=== PATIENT | male | born 1960 | race Caucasian/White ===

== ENCOUNTER 2017-04-26 08:11 | Day surgery (SDC) | payer OTHER ==
[2017-04-25 14:38] VITALS: BMI 23.4
[2017-04-26] MEDS ORDERED: PROPOFOL 20 ML ONE ×5 (08:34)
[2017-04-26] MEDS ORDERED: LIDOCAINE HCL/PF 2% SDV 5ML VIAL ONE (08:34)
[2017-04-26 10:00] VITALS: TEMP 97.7
[2017-04-26 12:57] VITALS: BP 121/63; PULSE 52
== END 2017-04-26 10:50 | disposition home or self-care (01) ==
LOC: JASU-ENDO 08:11
PROVIDERS: ATTEND Internal Medicine Gastroenterology
PROC: 0DJD8ZZ Inspection of Lower Intestinal Tract, Via Natural or Artificial Opening Endoscopic (ICD-10-PCS; principal; 2017-04-26 09:00)
DX: Z12.11 Encounter for screening for malignant neoplasm of colon (principal); Z86.010 Personal history of colon polyps; K57.30 Diverticulosis of large intestine without perforation or abscess without bleeding; K64.8 Other hemorrhoids

== ENCOUNTER 2018-12-18 12:30 | Emergency (ER) | payer OTHER ==
[2018-12-18 12:37] VITALS: BMI 23.5
[2018-12-18] MEDS ORDERED: SODIUM CHLORIDE 1,000 ML IV STA (13:20)
--- NOTE | 2018-12-18 13:40 | PDOC ---
Documentation entered by Faina Alvarez SCRIBE, acting as scribe for Joselito Simmons MD. Joselito Simmons MD: This documentation has been prepared by the Antonio jane Amanda, SCRIBE, under my direction and personally reviewed by me in its entirety. I confirm that the documentation accurately reflects all work, treatment, procedures, and medical decision making performed by me. History of Present Illness - General Chief Complaint: Lightheaded Stated Complaint: FALL W/DIZZINESS Time Seen by Provider: 12/18/18 12:53 History Source: Patient Exam Limitations: No Limitations - History of Present Illness Initial Comments: 12/18/18 13:14 The patient is a 58 year old male with a significant past medical history of BPH , HLD, HTN, MVP with regurg, who presents to the ED for evaluation after a syncopal episode. He states he has been feeling ill for about 3 days. He was recently treated for a sinus infection with a Z-pack, but over the past few days has been feeling feverish with bodyaches. He states he took Tylenol before bed last night with little to no relief. He states he was in the bathroom and when he heard the phone ring, he stood up and felt very lightheaded. Pt subsequently lost consciousness and fell forward. He reports hitting his forehead on the edge of the bathtub. Pt states that after he woke up, he felt very nauseous and vomited once. He currently complains of mild nausea, but his lightheadedness has resolved. He denies ever having chest pain, SOB, palpitations. He denies abdominal pain, diarrhea or constipation. Past History - Past Medical History Allergies/Adverse Reactions: Allergies Allergy/AdvReac Type Severity Reaction Status Date / Time UNKNOWN MATERIAL AdvReac Uncoded 12/18/18 12:33 Home Medications: Ambulatory Orders Finasteride [Proscar -] 5 mg PO DAILY 10/01/12 Lisinopril 5 mg PO DAILY 09/21/15 Atorvastatin Ca [Lipitor] 20 mg PO HS 12/18/18 Anemia: No Asthma: No Cancer: No Cardiac Disorders: Yes (MVP, MILD REGURGITATION) CVA: No COPD: No CHF: No Dementia: No Diabetes: No GI Disorders: Yes (GASTRIC ANTRUM ULCERS,H.PYLORI GASTRITIS,COLONIC POLYPS - SERRATED ADENOMA) Disorders: Yes (BPH) HTN: No Hypercholesterolemia: Yes (NO MEDS NEEDED) Liver Disease: No Seizures: No Thyroid Disease: No - Surgical History Abdominal Surgery: Yes (RIH,LIH,UMBILICAL LAPAROSCOPIC REPAIR) Appendectomy: No Cardiac Surgery: No Cholecystectomy: No Lung Surgery: No Neurologic Surgery: No Orthopedic Surgery: No - Immunization History Immunization Up to Date: Yes - Suicide/Smoking/Psychosocial Hx Smoking History: Never smoked Have you smoked in the past 12 months: No If you are a former smoker, when did you quit?: 20 years ago Hx Alcohol Use: No Drug/Substance Use Hx: No Substance Use Type: None Hx Substance Use Treatment: No Review of Systems - Review of Systems Able to Perform ROS?: Yes Comments:: 12/18/18 13:22 GENERAL/CONSTITUTIONAL: (+) generalized weakness. No fever or chills. HEAD, EYES, EARS, NOSE AND THROAT: No change in vision. No ear pain or discharge. No sore throat. CARDIOVASCULAR: (+) syncope, No chest pain, no shortness of breath, no loss of consciousness RESPIRATORY: No cough, wheezing, or hemoptysis. GASTROINTESTINAL: No nausea, vomiting, diarrhea or constipation. GENITOURINARY: No dysuria, frequency, or change in urination. MUSCULOSKELETAL: No joint or muscle swelling or pain. No neck or back pain. SKIN: No rash NEUROLOGIC: No vertigo. no change in strength/sensation. ENDOCRINE: No increased thirst. No abnormal weight change. HEMATOLOGIC/LYMPHATIC: No anemia, easy bleeding, or history of blood clots. ALLERGIC/IMMUNOLOGIC: No hives or skin allergy. *Physical Exam - Vital Signs Last Vital Signs Temp Pulse Resp BP Pulse Ox 98.7 F 80 18 127/80 97 12/18/18 12:34 12/18/18 12:34 12/18/18 12:34 12/18/18 12:34 12/18/18 12:34 - Physical Exam Comments: 12/18/18 13:23 GENERAL: Awake, alert, and fully oriented, in no acute distress. HEAD: No signs of trauma EYES: PERRLA, EOMI, sclera anicteric, conjunctiva clear ENT: Auricles normal inspection, hearing grossly normal, nares patent, oropharynx clear without exudates. Moist mucosa NECK: Nontender, no stepoffs, Normal ROM, supple, no lymphadenopathy, JVD, or masses LUNGS: Breath sounds equal, clear to auscultation bilaterally. No wheezes, and no crackles HEART: Regular rate and rhythm, normal S1 and S2, no murmurs, rubs or gallops ABDOMEN: Soft, nontender, normoactive bowel sounds. No guarding, no rebound. No masses EXTREMITIES: Normal range of motion, no edema. No clubbing or cyanosis. No cords, erythema, or tenderness NEUROLOGICAL: Cranial nerves II through XII intact. 5/5 strength and sensation in all extremities, Normal speech, normal gait, normal cerebellar function SKIN: Warm, Dry, normal turgor, no rashes or lesions noted. Heart Score/ECG Review - ECG Impressions Comment:: 12/18/18 15:49 NSR, no BRANDY/STDs, no TWIs, axis wnl, intervals wnl, rate 80 ED Treatment Course - LABORATORY CBC & Chemistry Diagram: 12/18/18 13:50 12/18/18 13:50 - RADIOLOGY Radiology Studies Ordered: Category Date Time Status CERVICAL SPINE CT W/O CONTR [CT] Stat CT Scan 12/18/18 13:[address] WITHOUT CONTRAST [CT] Stat CT Scan 12/18/18 13:20 Ordered CHEST PA & LAT [RAD] Stat Radiology 12/18/18 13:19 Ordered Medical Decision Making - Medical Decision Making 12/18/18 13:38 58 M with syncopal episode today. Likely orthostatic, as pt had just risen from sitting position. Pt with normal vitals in ED. Will r/o arrhythmia with EKG. Pt with recent subjective fevers so will also evaluate for infectious process. No evidence of head trauma on exam, but given vomiting after headstrike, will obtain CT head. - Labs - CXR, UA - CT head - IVF 12/18/18 15:49 EKG wnl Labs wnl CXR clear 12/18/18 16:37 Pt reassessed - now feels much better Pt is well appearing, with normal vitals. Clinically stable for DC at this time. I discussed the physical exam findings, ancillary test results and final diagnoses with the patient. I answered all of the patient's questions. The patient was satisfied with the care received and felt comfortable with the discharge plan and treatment plan. The patient agrees to follow up with the primary care physician within 24-72 hours. *DC/Admit/Observation/Transfer Diagnosis at time of Disposition: Syncope - Discharge Dispostion Disposition: HOME - Referrals Referrals: Kevin Naranjo MD [Primary Care Provider] - - Patient Instructions Printed Discharge Instructions: DI for Syncope in Adults (Fainting) Additional Instructions: Drink plenty of fluids to stay hydrated. If you experience any chest pain, shortness of breath, palpitations, or any other concerning symptoms, return to the ER immediately. Otherwise, follow up with your primary doctor within 1 week. - Post Discharge Activity - Attestations Physician Attestion: 12/18/18 16:38 I, Dr. Joselito Simmons MD, attest that this document has been prepared under my direction and personally reviewed by me in its entirety. I further attest, that it accurately reflects all work, treatment, procedures and medical decision -making performed by me.
[2018-12-18 14:03] LABS: BASO % 0.9 % (0-2.0); HEMATOCRIT 44.5 % (35.4-49); HEMOGLOBIN 15.2 GM/dL (11.7-16.9); LYMPH % 14.6 % (8-40); MCH 30.7 pg (25.7-33.7); MCHC 34.1 g/dl (32.0-35.9); MEAN CELL VOLUME 89.8 fl (80-96); MEAN PLT VOLUME 8.7 fl (7.5-11.1); MONO % 14.5 % (3.8-10.2); PLATELET COUNT 207 K/MM3 (134-434); RBC 4.95 M/mm3 (4.00-5.60); RDW 13.1 % (11.9-15.9); WHITE BLOOD COUNT 5.6 K/mm3 (4.0-10.0)
[2018-12-18 14:27] LABS: ALK PHOS 86 U/L (45-117); ANION GAP 5 MMOL/L (8-16); BILIRUBIN,TOTAL 0.6 mg/dL (0.2-1); BLOOD UREA NITROGEN 10 mg/dL (7-18); CHLORIDE 99 mmol/L (98-107); CO2 31 mmol/L (21-32); CREATININE 0.9 mg/dL (0.55-1.3); GLUCOSE,RANDOM 105 mg/dL (74-106); SGOT/AST 20 U/L (15-37); SGPT/ALT 28 U/L (13-61); SODIUM 135 mmol/L (136-145); TOT PROT 7.2 g/dl (6.4-8.2)
[2018-12-18] MEDS ORDERED: ONDANSETRON 4 MG/2 ML VIAL IVPB ONE (15:28)
[2018-12-18] MEDS ORDERED: ACETAMINOPHEN 1000 MG/100 ML VIAL (NON FORMULARY) IVPB ONE (15:28)
[2018-12-18 17:01] LABS: EPI CELLS 0 /HPF (0-5/HPF); PH,URINE 5.5 (5.0-8.0); URINE APPEARANCE CLEAR; URINE BACTERIA 3.7 /hpf (NEGATIVE); URINE BILIRUBIN NEGATIVE (NEGATIVE); URINE CASTS 0 /lpf (0-8); URINE COLOR YELLOW; URINE GLUCOSE (UA) NEGATIVE (NEGATIVE); URINE KETONE TRACE (NEGATIVE); URINE LEUK ESTERASE NEGATIVE (NEGATIVE); URINE NITRITE NEGATIVE (NEGATIVE); URINE PROTEIN NEGATIVE (NEGATIVE); URINE RBC 0 /hpf (0-4); URINE UROBILINOGEN 0.2 mg/dL (0.2-1.0); URINE WBC 0 /hpf (0-5)
[2018-12-18 18:12] VITALS: BP 109/65; PULSE 71; TEMP 98.6
--- NOTE | 2018-12-19 11:27 | EKG ---
Test Reason : Blood Pressure : / mmHG Vent. Rate : 080 BPM Atrial Rate : 080 BPM P-R Int : 168 ms QRS Dur : 092 ms QT Int : 366 ms P-R-T Axes : 047 001 038 degrees QTc Int : 422 ms NORMAL SINUS RHYTHM POSSIBLE LEFT ATRIAL ENLARGEMENT NO PREVIOUS ECGS AVAILABLE Confirmed by TITUS WINTERS MD ([id number]) on 12/19/2018 11:26:55 AM Referred By: Confirmed By:TITUS WINTERS MD
== END 2018-12-18 18:25 | disposition home or self-care (01) ==
LOC: JER 12:30
PROC: 3E0337Z Introduction of Electrolytic and Water Balance Substance into Peripheral Vein, Percutaneous Approach (ICD-10-PCS; principal; 2018-12-18)
PROC: 3E033GC Introduction of Other Therapeutic Substance into Peripheral Vein, Percutaneous Approach (ICD-10-PCS; 2018-12-18)
DX: R55 Syncope and collapse (principal); S09.8XXA Other specified injuries of head, initial encounter; W01.198A Fall on same level from slipping, tripping and stumbling with subsequent striking against other object, initial encounter; Y93.89 Activity, other specified; Y92.031 Bathroom in apartment as the place of occurrence of the external cause; Y99.8 Other external cause status; I10 Essential (primary) hypertension; E78.5 Hyperlipidemia, unspecified; E78.00 Pure hypercholesterolemia, unspecified; N40.0 Benign prostatic hyperplasia without lower urinary tract symptoms; I34.1 Nonrheumatic mitral (valve) prolapse; Z87.19 Personal history of other diseases of the digestive system
CPT/HCPCS: 36415; 70450-TC; 71046-TC-FY; 72125-TC; 80053; 81003; 82550; 84484; 85025; 93005; 93010; 99283-25; J0131; J7030

== ENCOUNTER 2022-08-24 04:24 | Day surgery (SDC) | payer OTHER ==
[2022-08-23 12:29] VITALS: BMI 22.5
[2022-08-24 12:08] VITALS: BP 128/72; PULSE 70; RESP 15
[2022-08-24 13:31] VITALS: TEMP 98.6
== END 2022-08-24 10:45 | disposition home or self-care (01) ==
LOC: JASU-ENDO 04:24
PROVIDERS: ATTEND Internal Medicine Gastroenterology
PROC: 0DJD8ZZ Inspection of Lower Intestinal Tract, Via Natural or Artificial Opening Endoscopic (ICD-10-PCS; principal; 2022-08-24 09:00)
DX: Z12.11 Encounter for screening for malignant neoplasm of colon (principal); K57.30 Diverticulosis of large intestine without perforation or abscess without bleeding; K64.8 Other hemorrhoids; Z86.010 Personal history of colon polyps

== ENCOUNTER 2023-06-03 11:27 | Emergency (ER) | payer OTHER ==
[2023-06-03 11:32] VITALS: BP 151/84; PULSE 80; RESP 18; TEMP 98; BMI 23.1
== END 2023-06-03 12:23 | disposition home or self-care (01) ==
LOC: JER 11:27
DX: R53.1 Weakness (principal); R20.0 Anesthesia of skin; G56.32 Lesion of radial nerve, left upper limb
CPT/HCPCS: 99281-25

== ENCOUNTER 2025-02-20 19:05 | Emergency (ER) | payer OTHER ==
[2025-02-20 19:17] VITALS: BP 120/68; PULSE 64; RESP 18; TEMP 98.1; BMI 23.7
[2025-02-20] MEDS ORDERED: ACETAMINOPHEN 325 MG TABLET (FP) ONE (20:01)
[2025-02-20] MEDS ORDERED: DIPHTH,PERTUSS(ACELL),TET 0.5 ML DISP.SYRIN IM ONE (20:01)
[2025-02-20] MEDS: ACETAMINOPHEN 325 MG TABLET (FP) PO ONE (20:05)
[2025-02-20] MEDS: DIPHTH,PERTUSS(ACELL),TET 0.5 ML DISP.SYRIN IM ONE (20:05)
[2025-02-20] MEDS ORDERED: LIDOCAINE 1%/EPI 1:100000 (20 ML MULTI DOSE VIAL) ONE (21:01)
== END 2025-02-20 23:10 | disposition home or self-care (01) ==
LOC: JER 19:05
PROC: 0HQ1XZZ Repair Face Skin, External Approach (ICD-10-PCS; principal; 2025-02-20)
PROC: 3E0234Z Introduction of Serum, Toxoid and Vaccine into Muscle, Percutaneous Approach (ICD-10-PCS; 2025-02-20)
DX: S01.81XA Laceration without foreign body of other part of head, initial encounter (principal); S60.512A Abrasion of left hand, initial encounter; S00.31XA Abrasion of nose, initial encounter; Z23 Encounter for immunization; W10.8XXA Fall (on) (from) other stairs and steps, initial encounter; Y92.522 Railway station as the place of occurrence of the external cause
CPT/HCPCS: 70450-TC; 90715; 99285-25

== ENCOUNTER 2025-02-26 12:44 | Emergency (ER) | payer OTHER ==
[2025-02-26 12:50] VITALS: BP 136/76; PULSE 58; RESP 20; TEMP 98; BMI 25.8
[2025-02-26] MEDS ORDERED: BACITRACIN ZINC 15 GM TUBE TOPICAL OINTMENT ONE (13:44)
[2025-02-26] MEDS: BACITRACIN ZINC 15 GM TUBE TOPICAL OINTMENT TP ONE (13:48)
== END 2025-02-26 14:01 | disposition home or self-care (01) ==
LOC: JERFT 12:44
DX: Z48.02 Encounter for removal of sutures (principal)
CPT/HCPCS: 99281-25

== ENCOUNTER 2025-04-18 13:56 | Emergency (ER) | payer OTHER ==
[2025-04-18 14:08] VITALS: BP 138/85; PULSE 63; RESP 16; TEMP 98.2; BMI 23.0
[2025-04-18] MEDS ORDERED: AZITHROMYCIN 500 MG TABLET ONE (17:58)
[2025-04-18] MEDS: AZITHROMYCIN 500 MG TABLET PO ONE (17:59)
== END 2025-04-18 18:17 | disposition home or self-care (01) ==
LOC: JER 13:56
DX: J01.00 Acute maxillary sinusitis, unspecified (principal)
CPT/HCPCS: 70486-TC; 99284-25